=== PATIENT | male | born 1995 | race African-American/Black ===

== ENCOUNTER 2024-09-18 08:45 | Emergency (ER) | payer OTHER ==
[~2024-09-18] VITALS: Ht 185.4 cm; Wt 81.6 kg
[2024-09-18 09:27] VITALS: BP 126/77; PULSE 99; RESP 18; TEMP 98.3; O2SAT 98
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
[2024-09-18] MEDS: KETOROLAC TROMETH 30 MG/ML 1ML VIAL IM ONE (09:37)
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
[2024-09-18] MEDS ORDERED: CYCL-837 PO (10:13)
[2024-09-18] MEDS ORDERED: NAPR-957 PO (10:13)
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
== END 2024-09-18 10:22 | disposition home or self-care (01) ==
LOC: ER 08:45
DX: S40.819A Abrasion of unspecified upper arm, initial encounter (principal); M79.629 Pain in unspecified upper arm; V89.2XXA Person injured in unspecified motor-vehicle accident, traffic, initial encounter; Y93.89 Activity, other specified; Y92.410 Unspecified street and highway as the place of occurrence of the external cause; Y99.8 Other external cause status
CPT/HCPCS: 73090; 73110; 73130; 96372; 99284; J1885